=== PATIENT | male | born 1955 | race Asian ===

== ENCOUNTER 2018-03-25 19:52 | Observation (INO) | payer MEDICARE, MEDICAID ==
[~2018-03-25] VITALS: Ht 177.8 cm; Wt 103.9 kg
--- NOTE | 2018-03-25 19:52 | NUR ---
PT YURY ALS. TAKEN TO BED 6
--- NOTE | 2018-03-25 19:52 | NUR ---
Storm cruz in [facility] - 03/25/18 at 1954 by KLAUDIA PT TAKEN TO BED 6
[2018-03-25 19:59] VITALS: BP 133/72
--- NOTE | 2018-03-25 20:00 | NUR ---
PT BIBA FOR NONPROVOKED CP STARTING APPROX 15MIN MANAGER IN TRAINING, SUBSTERNAL, RADIATING TO LEFT ARM AND C/O FACIAL NUMBNESS. NO FACIAL DROP NOTED, CLEAR SPEECH, FACIAL SYMMETRY. RR EVEN AND UNALBORED, BL BS CLEAR THROUGHOUT. PT DENIES N/V OR SOB. PT WAS GIVEN NITRO SPRAY 1X AND ASPIRIN 162 IN ROUTE. NO EDEMA NOTED, SKIN IS WARM, DRY, INTACT, NON DIAPHORETIC. PT C/O PAIN 6/10 AT THIS TIME, ER MD AWARE OF PT STATUS.
[2018-03-25] MEDS ORDERED: NITROGLYCERIN 2% 1 GM PKT TP ONE (20:05)
[2018-03-25] MEDS ORDERED: NACL 0.9% 1,000 ML IV ONE (20:05)
--- NOTE | 2018-03-25 20:10 | NUR ---
X-Ray at bedside.
--- NOTE | 2018-03-25 20:28 | NUR ---
LAB AT BEDSIDE
[2018-03-25 20:41] LABS: BASOPHILS # (AUTO) 0.1 K/uL (0.00-0.22); BASOPHILS % (AUTO) 0.7 % (0.0-2.0); EOSINOPHILS # (AUTO) 0.5 K/uL (0-0.4); EOSINOPHILS % (AUTO) 4.7 % (0.0-4.0); HEMOGLOBIN 13.2 g/dL (12.0-18.0); LYMPHOCYTES # (AUTO) 3.2 K/uL (2.0-11.5); LYMPHOCYTES % (AUTO) 29.6 % (20.5-51.1); MEAN CORPUSCULAR HEMOGLOBIN 28 pg (27-31); MEAN CORPUSCULAR HGB CONC 33 g/dL (33-37); MONOCYTES % (AUTO) 9.2 % (1.7-9.3); NEUTROPHILS # (AUTO) 6.1 K/uL (1.8-7.7); NEUTROPHILS % (AUTO) 55.8 % (42.2-75.2); PLATELET COUNT (AUTO) 252 K/uL (140-450); RED BLOOD CELL COUNT(AUTO) 4.76 MIL/uL (4.20-6.10); RED CELL DISTRIBUTION WIDTH 15.8 % (11.6-13.7); WHITE BLOOD COUNT (AUTO) 10.9 K/uL (4.8-10.8)
[2018-03-25 20:57] LABS: PROTHROMBIN TIME 9.5 secs (10.8-13.4)
[2018-03-25 20:59] LABS: ALBUMIN 3.8 g/dL (3.4-5.0); ANION GAP 10.4 (8-16); CARBON DIOXIDE 32.8 mmol/L (21-32); POTASSIUM 3.2 mmol/L (3.5-5.1); TOTAL BILIRUBIN 0.3 mg/dL (0.0-1.0)
--- NOTE | 2018-03-25 21:10 | NUR ---
Dr. Charles evaluating patient at bedside.
[2018-03-25] MEDS ORDERED: CLINDAMYCIN 900 MG in DEXTROSE 5% 100 ML IV ONE (21:25)
[2018-03-25] MEDS ORDERED: fentaNYL 0.05 MG/ML VIAL IVP ONE (21:25)
[2018-03-25] MEDS ORDERED: CLINDAMYCIN 900 MG/6 ML VIAL IV ONE (21:54)
--- NOTE | 2018-03-25 22:26 | NUR ---
PT LAYING IN BED RESTING, DAUGHTER AT BEDSIDE, WILL CONTINUE TO MONITOR.
--- NOTE | 2018-03-25 22:59 | NUR ---
PENDING TRANSFER D/T INSURANCE.
--- NOTE | 2018-03-26 00:28 | NUR ---
PT C/O INCREASING C/P ER MD AWARE OF PT STATUS.
--- NOTE | 2018-03-26 00:29 | NUR ---
PT DAUGHTER PHONE NUMBER [phone] (LAURO)
[2018-03-26] MEDS ORDERED: fentaNYL 0.05 MG/ML VIAL IVP ONE ×2 (00:30→01:20)
--- NOTE | 2018-03-26 02:09 | NUR ---
PT IN BED SLEEPING, NO NEW NEEDS AT THIS TIME, AWAITING RECEIVING FACILITY ACCEPTANCE.
--- NOTE | 2018-03-26 03:00 | NUR ---
PT IN BED SLEEPING, VSS, PENDING ADMISSION
[2018-03-26] MEDS ORDERED: HYDROcodone/APAP 5/325 MG 1 TAB TAB PO PRN (03:05)
[2018-03-26] MEDS ORDERED: ONDANSETRON 4 MG/2 ML VIAL IVP PRN (03:05)
--- NOTE | 2018-03-26 03:45 | NUR ---
Patient will be admitted to care of DR PEMBERTON. Admited to TELE. Will go to room 121-A. Belongings list completed. Report to KWESI TOMAS.
--- NOTE | 2018-03-26 03:50 | NUR ---
ADMITTED A 62 Y/O MALE FROM [facility]IA [facility] WITH CHIEF COMPLAIN OF CHEST PAIN. PATIENT [id number], AMBULATORY. PATIENT FOR OBSERVATION PER MD.SKIN INTACT. PICTURE TAKEN REDNESS RIGHT AC. MRSA NASAL SWAB DONE. ROUTINE ADMISSION CARE DONE AND CARRY OUT ORDERS.PERSONAL BELONGINGS AT BEDSIDE. EXPLAINED PLAN OF CARE AND VERBALIZED UNDERSTANDING. DENIES PAIN AT THIS TIME. FALL PRECAUTION APPLIED. CALL LIGHT WITHIN REACH. ALL NEEDS ATTENDED. WILL CONTINUE TO MONITOR.
[2018-03-26] MEDS ORDERED: POTASSIUM CHLORIDE 20% 40 MEQ/15 ML UDC PO SCH (04:00)
[2018-03-26] MEDS ORDERED: DEXT 5% / NACL 0.45% 1,000 ML IV SCH (04:00)
[2018-03-26 04:09] LABS: CREATINE KINASE MB 0.8 ng/mL (0-3.6)
--- NOTE | 2018-03-26 05:00 | NUR ---
SEEN PATIENT RESTING COMFORTABLE ON BED. ALL NEEDS ATTENDED. NO S/S OF DISTRESS NOTED. CALL LIGHT WITHIN REACH.
--- NOTE | 2018-03-26 07:25 | NUR ---
AM CARE DONE. ALL NEEDS ATTENDED. NO S/S OF DISTRESS NOTED AT THIS TIME. WILL CONTINUE TO MONITOR.
--- NOTE | 2018-03-26 07:26 | NUR ---
RECEIVED REPORT FROM PM NURSE AT BEDSIDE. PT IS ON OBSERVATION. HAS RT FA 2 G, IVF NS INFUSING AT 50 ML/HR. PT HAS RT FA CELLULITIS. AMBULATORY. NOS IGN OF DISTRESS. CALL LIGHT WITHIN. WILL CONTINUE TO MONITOR PT.
[2018-03-26 08:27] VITALS: BP 107/66
[2018-03-26] MEDS ORDERED: CEFAZOLIN SODIUM 1 GM/D5W PM 50 ML IV SCH (09:00)
--- NOTE | 2018-03-26 09:26 | NUR ---
ADMINISTERED MEDS TO PT ORDERED. TOLERATED WELL. COMPLAINS OF INTERMITTENT CHEST PAIN 4/10 AND PAIN AT HIS RT ARM . ADMINISTERED HIM NORCO FOR PAIN ON HIS ARM. NO SIGN OF DISTRESS. PLACED CALL LIGHT WITHIN PT REACH. WILL CONTINUE TO MONITOR PT.
--- NOTE | 2018-03-26 10:31 | NUR ---
PT FRIEND RAJANI VISITING PT AT HIS BEDSIDE. UPDATED HIM ON PT CONDITION. AP PER FRIEND, PT HAS FAMILY MEMBER, BUT HE IS ONE THAT IS ACTIVELY INVOLVED IN PT CARE. STATES THAT HE HAS BEEN DISCUSSING HOSPICE ACRE WITH CM. ALSO EXPRESS CONCERN ABOUT INSURANCE MIGHT NOT COVER HIS TREATMENT FOR LONG PERIOD OF TIME. STATES THAT CM HE NEEDS TO TALK TO CM TOMORROW FOR FURTHER UNDERSTANDING. VERBALIZED UNDERSTANDING. HELPED PT WITH HIS URINAL. PT IS RESTING COMFORTABLY AT THIS TIME. HAS PULSE AUX IN HIS LEFT LEG 2ND TOE. PT O2 SAT 100% VON VENT . EXPLAINED HIM THAT HIS O2 HAS BEEN SUPPLIED THROUGH VENT MACHINE, HAS GOOD O2 SAT. INFORMED HIM NOT TO PUUL OUT HIS TRACH,WILL CAUSE HIM DISTRESS. VERBALISED UNDERSTANDING. WILL CONTINUE TO MONITOR PT/
[2018-03-26 11:47] LABS: CREATINE KINASE MB 0.7 ng/mL (0-3.6)
[2018-03-26 12:00] VITALS: BP 105/57
--- NOTE | 2018-03-26 13:01 | NUR ---
RECEIVED CALL FORM OF [facility]. ASKING ABOUT PT, UPDATED HER ON HIS TROPONIN, AND LAB VALUES WELL INTERMITTENT CHEST PAIN. INFORMED HER THAT MD HAS NOT SEEN PT YET. WILL SEE HIM IN THE AFTERNOON. VERBALIZED UNDERSTANDING.
--- NOTE | 2018-03-26 14:15 | NUR ---
PATIENT HAS BEEN SCREENED AND CATEGORIZED MODERATE NUTRITION RISK. PATIENT WILL BE SEEN WITHIN 3-5 DAYS OF ADMISSION. 03/29/18 03/31/18 MEGAN PALMER MBA, RD
[2018-03-26 16:00] VITALS: BP 117/62
--- NOTE | 2018-03-26 16:00 | NUR ---
PT SLEEPING ON HIS BED. VS NOTED NORMAL. PT ALREADY SEEN BY DR PEMBERTON. HAS DC ORDER IN PLACE. EXPLAINED THAT PT IS GOING TO BE DC TODAY AT HOME. [PT AWARE. HAS PRESCRIPTION FOR ORAL ABX FOR [address] PEMBERTON, PT IS ADVISED TO SEE HIS PCP WITHIN 3-5 DAYS OF DISCHARGE. PT VERBALIZED UNDERSTANDING. NO SIGN OF DISTRESS NOTED. PT STATES THAT HER DAUGHTER WILL BE AROUND 1700, INFORMED THAT WILL WORK ON HIS DC PAPER. WILL CONTINUE TO MONITOR PT.
--- NOTE | 2018-03-26 18:15 | NUR ---
PT WENT HOME AT 1815 WITH ALL HIS BELONGINGS AND HIS DC PACKET. PRESCRIPTION WAS PROVIDED TO PT. INFORMED HIM TO VISIT PCP WITH 3-5 DAYS OF DISCHARGE. VERBALIZED UNDERSTANDING. PT WAS WHEELED OUT UP-TO FROMT DOOR IN WHEELCHAIR. WAS STABLE AND AOX4. PT WENT HOME WITH FAMILY MEMBERS.
[2018-03-27] MEDS ORDERED: ASPIRIN 325 MG TAB PO SCH (09:00)
== END 2018-03-26 18:15 | disposition home or self-care (01) ==
LOC: MED 19:52 → MTU 03-26 03:24
PROVIDERS: ADMIT Hospitalist; ATTEND Hospitalist
DX: R07.89 Other chest pain (principal); E11.9 Type 2 diabetes mellitus without complications; I10 Essential (primary) hypertension
CPT/HCPCS: 36415; 71045; 80053; 82550; 82553; 82948; 84484; 85025; 85610; 85730; 87081; 93005; 96365; 96367; 96375; 96376; 99285; G0378; J0690; J3010; J3490; Q0092; 96361; J7060

== ENCOUNTER 2023-05-12 14:43 | Inpatient (IN) | payer MEDICARE, MEDICAID ==
[~2023-05-12] VITALS: Ht 172.7 cm; Wt 82.7 kg
[2023-05-12] VITALS (8 sets, daily range): BP systolic 132; BP diastolic 76; PULSE 80–105; RESP 16–20; TEMP 98.4; O2SAT 91–100
[2023-05-12 15:32] LABS: BASOPHILS % (AUTO) 0.3 % (0.0-2.0); EOSINOPHILS % (AUTO) 0.2 % (0.0-4.0); HEMATOCRIT 44.3 % (36-52); HEMOGLOBIN 14.9 g/dL (12.0-18.0); LYMPHOCYTES # (AUTO) 1.5 K/uL (2.0-11.5); LYMPHOCYTES % (AUTO) 15.2 % (20.5-51.1); MEAN CORPUSCULAR HEMOGLOBIN 29 pg (27-31); MEAN CORPUSCULAR HGB CONC 34 g/dL (33-37); MEAN CORPUSCULAR VOLUME 85.4 fL (80-94); MONOCYTES # (AUTO) 1.4 K/uL (0.8-1.0); MONOCYTES % (AUTO) 13.7 % (1.7-9.3); NEUTROPHILS % (AUTO) 70.6 % (42.2-75.2); PLATELET COUNT (AUTO) 195 K/uL (140-450); RED BLOOD CELL COUNT(AUTO) 5.18 MIL/uL (4.20-6.10); RED CELL DISTRIBUTION WIDTH 15.3 % (11.6-13.7); WHITE BLOOD COUNT (AUTO) 9.9 K/uL (4.8-10.8)
[2023-05-12] MEDS ORDERED: NACL 0.9% 250 ML IV ONE (15:40)
[2023-05-12] MEDS ORDERED: ALBUTEROL SULFATE/IPRATROPIU 3 ML SOL IH ONE (15:40)
[2023-05-12 15:59] LABS: ALANINE AMINOTRANSFERASE 40 U/L (12-78); ALBUMIN 2.9 g/dL (3.4-5.0); ALKALINE PHOSPHATASE 54 U/L (50-136); ASPARTATE AMINOTRANSFERASE 70 U/L (15-37); BILIRUBIN,DIRECT 0.1 mg/dL (0.0-0.3); LIPASE 88 U/L (16-77); TOTAL BILIRUBIN 0.4 mg/dL (0.0-1.0); TOTAL PROTEIN, SERUM 7.8 g/dL (6.4-8.2)
[2023-05-12 16:04] LABS: INR 1.02 (0.8-1.2); PARTIAL THROMBOPLASTIN TIME 31.8 secs (22-35.6); PROTHROMBIN TIME 10.7 secs (10.8-13.4)
[2023-05-12 16:19] LABS: FLU A ANTIGEN negative (NEGATIVE); FLU B ANTIGEN negative (NEGATIVE)
[2023-05-12 16:20] LABS: LACTIC ACID 1.4 mmol/L (0.4-2.0)
[2023-05-12 16:27] LABS: ANION GAP 13.4 (8-16); CALCIUM 8.5 mg/dL (8.5-10.1); CARBON DIOXIDE 27.5 mmol/L (21-32); CREATININE 0.9 mg/dL (0.6-1.3)
[2023-05-12 16:37] LABS: POTASSIUM 2.9 mmol/L (3.5-5.1)
[2023-05-12] MEDS ORDERED: POTASSIUM CHLORIDE 10 MEQ TABER PO ONE (16:45)
[2023-05-12] MEDS ORDERED: POTASSIUM CHL 20 MEQ/NACL 0.9% 1,000 ML IV ONE (16:45)
[2023-05-12] MEDS ORDERED: DEXAMETHASONE 4 MG/ML VIAL IVP ONE (16:45)
[2023-05-12] MEDS ORDERED: guaiFENesin 20 MG/ML UDC PO ONE (16:45)
[2023-05-12] MEDS ORDERED: ASPIRIN 325 MG TAB PO ONE (16:45)
[2023-05-12] MEDS ORDERED: KCL 20 MEQ IN 100 mL PREMIX 200 ML IV PRN (18:05)
[2023-05-12] MEDS ORDERED: POTASSIUM CHLORIDE 10 MEQ TABER PO PRN (18:05)
[2023-05-12] MEDS ORDERED: MAGNESIUM OXIDE 400 MG TAB PO PRN (18:05)
[2023-05-12] MEDS ORDERED: MAG SULF 2000 MG/WATER PREMIX 50 ML IV PRN (18:05)
[2023-05-12] MEDS ORDERED: ACETAMINOPHEN 325 MG TAB PO PRN (18:05)
[2023-05-12] MEDS ORDERED: HYDROcodone/APAP 5/325 MG 1 TAB TAB PO PRN (18:05)
[2023-05-12] MEDS ORDERED: AZITHROMYCIN 500 MG in DEXTROSE 5% 250 ML IV ONE (18:55)
[2023-05-12] MEDS: ALBUTEROL SULFATE/IPRATROPIU 3 ML SOL IH SCH (19:03)
[2023-05-12] MEDS ORDERED: TAMS0.4C97 PO (19:10)
[2023-05-12] MEDS ORDERED: GABA300C (19:10)
[2023-05-12] MEDS ORDERED: AZITHROMYCIN 500 MG INJ VIAL IV ONE (19:43)
[2023-05-12] MEDS ORDERED: cefTRIAXone 1,000 MG VIAL ONE (19:43)
[2023-05-12] MEDS ORDERED: BUDESONIDE 0.5 MG/2 ML NEBU INH SCH (21:00)
[2023-05-12] MEDS ORDERED: ACETAMINOPHEN 650 MG SUPP RC PRN (21:05)
[2023-05-12] MEDS ORDERED: ACETAMINOPHEN 650 MG SUPP RC ONE (21:17)
[2023-05-12] MEDS: MORPHINE SULFATE 2 MG/ML SYR IVP PRN (21:46)
[2023-05-13] VITALS (12 sets, daily range): BP systolic 120–138; BP diastolic 62–74; PULSE 80–105; RESP 18–24; TEMP 96–98.2; O2SAT 92–100
[2023-05-13] MEDS ORDERED: methylPREDNISolone SS 40 MG in WATER STERILE 1 ML IV SCH ×2
[2023-05-13] MEDS: methylPREDNISolone SS 40 MG/ML VIAL IVP SCH ×4 (01:31→17:30)
[2023-05-13] MEDS: MORPHINE SULFATE 2 MG/ML SYR IVP PRN ×3 (01:31→21:18)
[2023-05-13] MEDS: ALBUTEROL SULFATE/IPRATROPIU 3 ML SOL IH SCH ×5 (01:50→23:00)
[2023-05-13] MEDS ORDERED: ALBUTEROL SULFATE/IPRATROPIU 3 ML SOL IH SCH (07:00)
[2023-05-13] MEDS ORDERED: ACETYLCYSTEINE 20% (200 MG/ML) 200 MG/ML VIAL INH SCH (07:00)
[2023-05-13 07:16] LABS: HEMATOCRIT 45.4 % (36-52); HEMOGLOBIN 15.1 g/dL (12.0-18.0); LYMPHOCYTES # (AUTO) 0.7 K/uL (2.0-11.5); LYMPHOCYTES % (AUTO) 4.3 % (20.5-51.1); MEAN CORPUSCULAR HEMOGLOBIN 28 pg (27-31); MEAN CORPUSCULAR HGB CONC 33 g/dL (33-37); MEAN CORPUSCULAR VOLUME 85.4 fL (80-94); MONOCYTES % (AUTO) 6.1 % (1.7-9.3); NEUTROPHILS # (AUTO) 15.1 K/uL (1.8-7.7); NEUTROPHILS % (AUTO) 89.6 % (42.2-75.2); PLATELET COUNT (AUTO) 188 K/uL (140-450); RED BLOOD CELL COUNT(AUTO) 5.32 MIL/uL (4.20-6.10); RED CELL DISTRIBUTION WIDTH 15.4 % (11.6-13.7); WHITE BLOOD COUNT (AUTO) 16.9 K/uL (4.8-10.8)
[2023-05-13 07:31] LABS: ALBUMIN 2.7 g/dL (3.4-5.0); CALCIUM 8.4 mg/dL (8.5-10.1); CARBON DIOXIDE 27.4 mmol/L (21-32); MAGNESIUM 2.1 mg/dL (1.8-2.4); POTASSIUM 3.4 mmol/L (3.5-5.1); TOTAL BILIRUBIN 0.4 mg/dL (0.0-1.0); TOTAL PROTEIN, SERUM 7.6 g/dL (6.4-8.2)
[2023-05-13] MEDS: BUDESONIDE 0.5 MG/2 ML NEBU INH SCH ×2 (08:08→19:38)
[2023-05-13] MEDS: ATORVASTATIN 20 MG TAB PO SCH (09:00)
[2023-05-13] MEDS: ASPIRIN 81 MG TAB.CHEW PO SCH (10:01)
[2023-05-13] MEDS ORDERED: remdesivir COMMUNICATION ORDER 1 EA MISC MC PRN (11:30)
[2023-05-13] MEDS ORDERED: remdesivir CLINICAL MONITORING 1 EA MISC MC PRN (11:40)
[2023-05-13] MEDS: ACETYLCYSTEINE 20% (200 MG/ML) 200 MG/ML VIAL INH SCH ×4 (12:00→23:01)
[2023-05-13 12:01] LABS: ALBUMIN 2.7 g/dL (3.4-5.0); BILIRUBIN,DIRECT 0.1 mg/dL (0.0-0.3); TOTAL BILIRUBIN 0.3 mg/dL (0.0-1.0); TOTAL PROTEIN, SERUM 7.6 g/dL (6.4-8.2)
[2023-05-13] MEDS: METOPROLOL 25 MG TAB PO SCH ×2 (12:05→21:09)
[2023-05-13] MEDS ORDERED: POTASSIUM CHLORIDE 40 MEQ, LIDOCAINE 1% 25 MG in NACL 0.9% 250 ML IV SCH (12:30)
[2023-05-13] MEDS ORDERED: REMDESIVIR. 200 MG in NACL 0.9% 100 ML IV SCH (13:00)
[2023-05-14] VITALS (12 sets, daily range): BP systolic 108–130; BP diastolic 64–75; PULSE 80–112; RESP 16–18; TEMP 96–98.1; O2SAT 94–99
[2023-05-14] MEDS: methylPREDNISolone SS 40 MG/ML VIAL IVP SCH ×4 (00:23→17:45)
[2023-05-14] MEDS: ACETYLCYSTEINE 20% (200 MG/ML) 200 MG/ML VIAL INH SCH ×6 (03:46→23:12)
[2023-05-14] MEDS: ALBUTEROL SULFATE/IPRATROPIU 3 ML SOL IH SCH ×6 (03:46→23:12)
[2023-05-14 06:22] LABS: HEMATOCRIT 44.9 % (36-52); HEMOGLOBIN 15.1 g/dL (12.0-18.0); LYMPHOCYTES # (AUTO) 0.9 K/uL (2.0-11.5); LYMPHOCYTES % (AUTO) 4.5 % (20.5-51.1); MEAN CORPUSCULAR HEMOGLOBIN 29 pg (27-31); MEAN CORPUSCULAR HGB CONC 34 g/dL (33-37); MEAN CORPUSCULAR VOLUME 84.9 fL (80-94); MONOCYTES # (AUTO) 1.8 K/uL (0.8-1.0); MONOCYTES % (AUTO) 9.5 % (1.7-9.3); NEUTROPHILS # (AUTO) 16.4 K/uL (1.8-7.7); PLATELET COUNT (AUTO) 194 K/uL (140-450); RED BLOOD CELL COUNT(AUTO) 5.29 MIL/uL (4.20-6.10); RED CELL DISTRIBUTION WIDTH 15.5 % (11.6-13.7); WHITE BLOOD COUNT (AUTO) 19.1 K/uL (4.8-10.8)
[2023-05-14 06:57] LABS: ALBUMIN 2.4 g/dL (3.4-5.0); BILIRUBIN,DIRECT 0.1 mg/dL (0.0-0.3); TOTAL BILIRUBIN 0.3 mg/dL (0.0-1.0); TOTAL PROTEIN, SERUM 7.3 g/dL (6.4-8.2)
[2023-05-14 07:00] LABS: ALBUMIN 2.5 g/dL (3.4-5.0); ANION GAP 14.8 (8-16); CALCIUM 8.9 mg/dL (8.5-10.1); CARBON DIOXIDE 24.7 mmol/L (21-32); MAGNESIUM 2.6 mg/dL (1.8-2.4); POTASSIUM 3.5 mmol/L (3.5-5.1); TOTAL BILIRUBIN 0.3 mg/dL (0.0-1.0); TOTAL PROTEIN, SERUM 7.3 g/dL (6.4-8.2)
[2023-05-14] MEDS: BUDESONIDE 0.5 MG/2 ML NEBU INH SCH ×2 (08:06→19:16)
[2023-05-14] MEDS: METOPROLOL 25 MG TAB PO SCH ×2 (09:00→21:00)
[2023-05-14] MEDS: ASPIRIN 81 MG TAB.CHEW PO SCH (09:00)
[2023-05-14] MEDS: ATORVASTATIN 20 MG TAB PO SCH (09:00)
[2023-05-14] MEDS: REMDESIVIR. 100 MG in NACL 0.9% 100 ML IV SCH (13:43)
[2023-05-14] MEDS: ZINC SULF 220 MG CAP PO SCH (13:45)
[2023-05-14] MEDS: VITAMIN D 400 IU TAB PO SCH (13:45)
[2023-05-14] MEDS: ASCORBIC ACID 500 MG TAB PO SCH (13:45)
[2023-05-14] MEDS ORDERED: baricitinib COMM. ORDER 1 EA MISC MC PRN (13:45)
[2023-05-14] MEDS: BARICITINIB 2 MG TAB PO SCH (15:00)
[2023-05-14] MEDS: MORPHINE SULFATE 2 MG/ML SYR IVP PRN (17:46)
[2023-05-14] MEDS: FAMOTIDINE 20 MG/2 ML VIAL IV SCH (21:09)
[2023-05-15] VITALS (15 sets, daily range): BP systolic 108–129; BP diastolic 71–76; PULSE 73–110; RESP 17–20; TEMP 97.1–98; O2SAT 94–99
[2023-05-15] MEDS: methylPREDNISolone SS 40 MG/ML VIAL IVP SCH ×5 (00:16→23:31)
[2023-05-15] MEDS: ACETYLCYSTEINE 20% (200 MG/ML) 200 MG/ML VIAL INH SCH ×6 (03:51→23:09)
[2023-05-15] MEDS: ALBUTEROL SULFATE/IPRATROPIU 3 ML SOL IH SCH ×6 (03:51→23:09)
[2023-05-15] MEDS: MORPHINE SULFATE 2 MG/ML SYR IVP PRN ×2 (03:52→13:02)
[2023-05-15 07:02] LABS: BASOPHILS % (AUTO) 0.1 % (0.0-2.0); HEMATOCRIT 46.4 % (36-52); HEMOGLOBIN 15.4 g/dL (12.0-18.0); LYMPHOCYTES # (AUTO) 0.7 K/uL (2.0-11.5); MEAN CORPUSCULAR HGB CONC 33 g/dL (33-37)
[2023-05-15 07:20] LABS: ALBUMIN 2.4 g/dL (3.4-5.0); ANION GAP 12.5 (8-16); CARBON DIOXIDE 28.2 mmol/L (21-32); CREATININE 1.1 mg/dL (0.6-1.3); MAGNESIUM 2.8 mg/dL (1.8-2.4); MEAN CORPUSCULAR HEMOGLOBIN 28 pg (27-31); POTASSIUM 3.7 mmol/L (3.5-5.1); TOTAL BILIRUBIN 0.3 mg/dL (0.0-1.0); TOTAL PROTEIN, SERUM 7.2 g/dL (6.4-8.2)
[2023-05-15 07:21] LABS: ALBUMIN 2.5 g/dL (3.4-5.0); BILIRUBIN,DIRECT 0.1 mg/dL (0.0-0.3); TOTAL BILIRUBIN 0.3 mg/dL (0.0-1.0); TOTAL PROTEIN, SERUM 7.3 g/dL (6.4-8.2)
[2023-05-15 07:23] LABS: MEAN CORPUSCULAR VOLUME 85.6 fL (80-94); RED BLOOD CELL COUNT(AUTO) 5.42 MIL/uL (4.20-6.10); WHITE BLOOD COUNT (AUTO) 20.7 K/uL (4.8-10.8)
[2023-05-15 07:24] LABS: LYMPHOCYTES % (AUTO) 3.5 % (20.5-51.1); MONOCYTES # (AUTO) 1.8 K/uL (0.8-1.0); MONOCYTES % (AUTO) 8.5 % (1.7-9.3); NEUTROPHILS # (AUTO) 18.2 K/uL (1.8-7.7); NEUTROPHILS % (AUTO) 87.9 % (42.2-75.2); PLATELET COUNT (AUTO) 199 K/uL (140-450); RED CELL DISTRIBUTION WIDTH 15.7 % (11.6-13.7)
[2023-05-15] MEDS: BUDESONIDE 0.5 MG/2 ML NEBU INH SCH ×2 (08:02→20:02)
[2023-05-15] MEDS: ASPIRIN 81 MG TAB.CHEW PO SCH (08:19)
[2023-05-15] MEDS: VITAMIN D 400 IU TAB PO SCH (08:19)
[2023-05-15] MEDS: ATORVASTATIN 20 MG TAB PO SCH (08:20)
[2023-05-15] MEDS: ZINC SULF 220 MG CAP PO SCH (08:21)
[2023-05-15] MEDS: METOPROLOL 25 MG TAB PO SCH ×2 (08:21→20:36)
[2023-05-15] MEDS: BARICITINIB 2 MG TAB PO SCH (08:21)
[2023-05-15] MEDS: ASCORBIC ACID 500 MG TAB PO SCH (08:21)
[2023-05-15] MEDS: FAMOTIDINE 20 MG/2 ML VIAL IV SCH ×2 (10:19→20:29)
[2023-05-15] MEDS: REMDESIVIR. 100 MG in NACL 0.9% 100 ML IV SCH (14:12)
[2023-05-15] MEDS ORDERED: KCL 20 MEQ IN 100 mL PREMIX 100 ML IV ONE (17:30)
[2023-05-16] VITALS (13 sets, daily range): BP systolic 122–134; BP diastolic 67–75; PULSE 70–95; RESP 16–22; TEMP 97.1–98.5; O2SAT 95–99
[2023-05-16] MEDS: ACETYLCYSTEINE 20% (200 MG/ML) 200 MG/ML VIAL INH SCH ×5 (04:14→22:52)
[2023-05-16] MEDS: ALBUTEROL SULFATE/IPRATROPIU 3 ML SOL IH SCH ×5 (04:14→22:53)
[2023-05-16] MEDS: MORPHINE SULFATE 2 MG/ML SYR IVP PRN ×2 (04:29→13:11)
[2023-05-16] MEDS: methylPREDNISolone SS 40 MG/ML VIAL IVP SCH ×3 (05:29→17:09)
[2023-05-16 07:16] LABS: BASOPHILS % (AUTO) 0.1 % (0.0-2.0); HEMATOCRIT 44.5 % (36-52); HEMOGLOBIN 14.6 g/dL (12.0-18.0); LYMPHOCYTES # (AUTO) 0.6 K/uL (2.0-11.5); LYMPHOCYTES % (AUTO) 3.2 % (20.5-51.1); MEAN CORPUSCULAR HEMOGLOBIN 28 pg (27-31); MEAN CORPUSCULAR HGB CONC 33 g/dL (33-37); MEAN CORPUSCULAR VOLUME 84.3 fL (80-94); MONOCYTES # (AUTO) 1.8 K/uL (0.8-1.0); MONOCYTES % (AUTO) 9.3 % (1.7-9.3); NEUTROPHILS # (AUTO) 16.7 K/uL (1.8-7.7); NEUTROPHILS % (AUTO) 87.4 % (42.2-75.2); PLATELET COUNT (AUTO) 202 K/uL (140-450); RED BLOOD CELL COUNT(AUTO) 5.28 MIL/uL (4.20-6.10); RED CELL DISTRIBUTION WIDTH 15.9 % (11.6-13.7); WHITE BLOOD COUNT (AUTO) 19.2 K/uL (4.8-10.8)
[2023-05-16 07:47] LABS: ALBUMIN 2.3 g/dL (3.4-5.0); BILIRUBIN,DIRECT 0.1 mg/dL (0.0-0.3); TOTAL BILIRUBIN 0.4 mg/dL (0.0-1.0); TOTAL PROTEIN, SERUM 7.3 g/dL (6.4-8.2)
[2023-05-16 07:49] LABS: ALBUMIN 2.3 g/dL (3.4-5.0); ANION GAP 14.7 (8-16); CALCIUM 8.9 mg/dL (8.5-10.1); CARBON DIOXIDE 27.1 mmol/L (21-32); CREATININE 1.2 mg/dL (0.6-1.3); MAGNESIUM 2.9 mg/dL (1.8-2.4); POTASSIUM 3.8 mmol/L (3.5-5.1); TOTAL BILIRUBIN 0.5 mg/dL (0.0-1.0); TOTAL PROTEIN, SERUM 7.5 g/dL (6.4-8.2)
[2023-05-16] MEDS: BUDESONIDE 0.5 MG/2 ML NEBU INH SCH (08:49)
[2023-05-16] MEDS: FAMOTIDINE 20 MG/2 ML VIAL IV SCH ×2 (10:13→20:12)
[2023-05-16] MEDS: VITAMIN D 400 IU TAB PO SCH (10:14)
[2023-05-16] MEDS: ATORVASTATIN 20 MG TAB PO SCH (10:14)
[2023-05-16] MEDS: ZINC SULF 220 MG CAP PO SCH (10:15)
[2023-05-16] MEDS: BARICITINIB 2 MG TAB PO SCH (10:15)
[2023-05-16] MEDS: METOPROLOL 25 MG TAB PO SCH ×2 (10:15→20:18)
[2023-05-16] MEDS: ASPIRIN 81 MG TAB.CHEW PO SCH (10:16)
[2023-05-16] MEDS: ASCORBIC ACID 500 MG TAB PO SCH (10:16)
[2023-05-16] MEDS ORDERED: POTASSIUM CHLORIDE 10 MEQ TABER PO SCH (10:21)
[2023-05-16] MEDS ORDERED: POTASSIUM CHLORIDE 20% 40 MEQ/15 ML UDC PO SCH (12:06)
[2023-05-16] MEDS: REMDESIVIR. 100 MG in NACL 0.9% 100 ML IV SCH (13:08)
[2023-05-17] VITALS (11 sets, daily range): BP systolic 116–137; BP diastolic 65–76; PULSE 54–87; RESP 18–20; TEMP 97.2–99.4; O2SAT 93–100
[2023-05-17] MEDS: methylPREDNISolone SS 40 MG/ML VIAL IVP SCH ×4 (00:43→23:30)
[2023-05-17] MEDS: BUDESONIDE 0.5 MG/2 ML NEBU INH SCH ×3 (07:11→19:44)
[2023-05-17] MEDS: ALBUTEROL SULFATE/IPRATROPIU 3 ML SOL IH SCH ×6 (07:11→23:50)
[2023-05-17] MEDS: ACETYLCYSTEINE 20% (200 MG/ML) 200 MG/ML VIAL INH SCH ×6 (07:11→23:50)
[2023-05-17 07:17] LABS: BASOPHILS % (AUTO) 0.1 % (0.0-2.0); HEMATOCRIT 42.8 % (36-52); HEMOGLOBIN 14.3 g/dL (12.0-18.0); LYMPHOCYTES % (AUTO) 7.6 % (20.5-51.1); MEAN CORPUSCULAR HEMOGLOBIN 28 pg (27-31); MEAN CORPUSCULAR HGB CONC 33 g/dL (33-37); MEAN CORPUSCULAR VOLUME 84.7 fL (80-94); MONOCYTES # (AUTO) 1.4 K/uL (0.8-1.0); MONOCYTES % (AUTO) 11.3 % (1.7-9.3); NEUTROPHILS # (AUTO) 10.1 K/uL (1.8-7.7); PLATELET COUNT (AUTO) 208 K/uL (140-450); RED BLOOD CELL COUNT(AUTO) 5.06 MIL/uL (4.20-6.10); RED CELL DISTRIBUTION WIDTH 15.9 % (11.6-13.7); WHITE BLOOD COUNT (AUTO) 12.5 K/uL (4.8-10.8)
[2023-05-17 07:39] LABS: ALBUMIN 2.3 g/dL (3.4-5.0); BILIRUBIN,DIRECT 0.1 mg/dL (0.0-0.3); TOTAL BILIRUBIN 0.5 mg/dL (0.0-1.0)
[2023-05-17 07:51] LABS: ALBUMIN 2.2 g/dL (3.4-5.0); ANION GAP 10.2 (8-16); CALCIUM 8.9 mg/dL (8.5-10.1); CARBON DIOXIDE 29.5 mmol/L (21-32); MAGNESIUM 2.8 mg/dL (1.8-2.4); POTASSIUM 4.7 mmol/L (3.5-5.1); TOTAL BILIRUBIN 0.5 mg/dL (0.0-1.0)
[2023-05-17] MEDS: BARICITINIB 2 MG TAB PO SCH (10:00)
[2023-05-17] MEDS: VITAMIN D 400 IU TAB PO SCH (10:01)
[2023-05-17] MEDS: ASCORBIC ACID 500 MG TAB PO SCH (10:02)
[2023-05-17] MEDS: ASPIRIN 81 MG TAB.CHEW PO SCH (10:02)
[2023-05-17] MEDS: FAMOTIDINE 20 MG/2 ML VIAL IV SCH ×2 (10:02→23:30)
[2023-05-17] MEDS: METOPROLOL 25 MG TAB PO SCH ×2 (10:03→21:55)
[2023-05-17] MEDS: ZINC SULF 220 MG CAP PO SCH (10:03)
[2023-05-17] MEDS: ATORVASTATIN 20 MG TAB PO SCH (10:04)
[2023-05-17] MEDS: DEXT 5% / NACL 0.45% 1,000 ML IV SCH (13:17)
[2023-05-17] MEDS: REMDESIVIR. 100 MG in NACL 0.9% 100 ML IV SCH (13:18)
[2023-05-17] MEDS: ENOXAPARIN 40 MG/0.4 ML SYR SUBQ SCH (21:54)
[2023-05-18] VITALS (10 sets, daily range): BP systolic 123–145; BP diastolic 67–78; PULSE 63–85; RESP 16–24; TEMP 96.4–98.3; O2SAT 93–100
[2023-05-18] MEDS: ALBUTEROL SULFATE/IPRATROPIU 3 ML SOL IH SCH ×4 (03:55→16:02)
[2023-05-18] MEDS: ACETYLCYSTEINE 20% (200 MG/ML) 200 MG/ML VIAL INH SCH ×4 (03:55→16:02)
[2023-05-18] MEDS: DEXT 5% / NACL 0.45% 1,000 ML IV SCH (07:50)
[2023-05-18 07:55] LABS: ALBUMIN 2.2 g/dL (3.4-5.0); BILIRUBIN,DIRECT 0.1 mg/dL (0.0-0.3); TOTAL BILIRUBIN 0.5 mg/dL (0.0-1.0); TOTAL PROTEIN, SERUM 6.7 g/dL (6.4-8.2)
[2023-05-18] MEDS: BUDESONIDE 0.5 MG/2 ML NEBU INH SCH (08:00)
[2023-05-18] MEDS ORDERED: POTASSIUM CHLORIDE 20% 40 MEQ/15 ML UDC PO PRN (08:25)
[2023-05-18] MEDS: ZINC SULF 220 MG CAP PO SCH (09:32)
[2023-05-18] MEDS: METOPROLOL 25 MG TAB PO SCH (09:33)
[2023-05-18] MEDS: BARICITINIB 2 MG TAB PO SCH (09:33)
[2023-05-18] MEDS: VITAMIN D 400 IU TAB PO SCH (09:34)
[2023-05-18] MEDS: ATORVASTATIN 20 MG TAB PO SCH (09:34)
[2023-05-18] MEDS: ASCORBIC ACID 500 MG TAB PO SCH (09:35)
[2023-05-18] MEDS: ASPIRIN 81 MG TAB.CHEW PO SCH (09:35)
[2023-05-18] MEDS: FAMOTIDINE 20 MG/2 ML VIAL IV SCH (09:39)
[2023-05-18] MEDS: methylPREDNISolone SS 40 MG/ML VIAL IVP SCH (09:39)
[2023-05-18] MEDS: ENOXAPARIN 40 MG/0.4 ML SYR SUBQ SCH (09:39)
[2023-05-18] MEDS ORDERED: ASPI81EC19 PO (13:25)
[2023-05-18] MEDS ORDERED: ATOR20TA40 PO (13:25)
== END 2023-05-18 19:18 | disposition home or self-care (01) | DRG 871 ==
LOC: MED 14:43 → MTU 18:01
PROVIDERS: ADMIT Student in an Organized Health Care Education/Training Program; ATTEND Student in an Organized Health Care Education/Training Program
PROC: XW033E5 Introduction of Remdesivir Anti-infective into Peripheral Vein, Percutaneous Approach, New Technology Group 5 (ICD-10-PCS; principal; 2023-05-14)
DX: A41.9 Sepsis, unspecified organism (principal); G93.41 Metabolic encephalopathy; U07.1 COVID-19; I21.A1 Myocardial infarction type 2; J12.82 Pneumonia due to coronavirus disease 2019; J96.21 Acute and chronic respiratory failure with hypoxia; J44.1 Chronic obstructive pulmonary disease with (acute) exacerbation; I31.39 Other pericardial effusion (noninflammatory); I10 Essential (primary) hypertension; E78.5 Hyperlipidemia, unspecified; I44.7 Left bundle-branch block, unspecified; Z20.822 Contact with and (suspected) exposure to COVID-19; E11.9 Type 2 diabetes mellitus without complications; E87.6 Hypokalemia; Z91.040 Latex allergy status; Z88.2 Allergy status to sulfonamides; Z91.09 Other allergy status, other than to drugs and biological substances; Z90.49 Acquired absence of other specified parts of digestive tract
CPT/HCPCS: 36415; 70450; 70490; 71045; 71275; 80048; 80053; 80076; 82140; 83605; 83690; 83735; 83880; 84484; 85025; 85379; 85610; 85730; 87040; 87070; 87081; 87205; 89220; 92526; 93005; 94640; 94667; 96361; 96365; 96367; 97110; 97112; 97116; 97163-GP; 97530; 99291; J0456; J0696; J1100; J1644; J1650; J2001; J2270; J2920; J3480; J3490; J7030; J7060; J7608; J7626; Q9967